=== PATIENT | male | born 1970 ===

== ENCOUNTER 2019-09-15 09:37 | Outpatient (CLI) | payer OTHER ==
--- NOTE | 2019-09-15 14:41 | XRay Report ---
RIGHT SHOULDER 3 VIEWS INDICATION: RT SHOULDER/ARM PAIN. COMPARISON: No relevant prior imaging study available. FINDINGS: No acute fracture or dislocation. There is mild acromioclavicular degenerative change. No soft tissue swelling or calcifications. IMPRESSION: 1. No acute findings. CERVICAL SPINE 3 VIEWS THORACIC SPINE 3 VIEWS INDICATION: Cervical and thoracic back pain right of midline.. COMPARISON: No relevant prior imaging study available. FINDINGS: Cervical spine: Cervical vertebral body height is maintained. There is mild discogenic degenerative c hange at C5-6 and C6-7. Alignment is normal. There is no prevertebral soft tissue swelling. Thoracic spine: No acute fracture is seen. There is mild mid thoracic disc space narrowing. Alignment is normal. IMPRESSION: 1. No acute findings. Signer Name: Fernando Hernandez MD Signed: 09/15/2019 2:37 PM Workstation Name: [id number]
== END 2019-09-15 09:38 | disposition home or self-care (01) ==
LOC: SPVIMAG 09:37
PROVIDERS: ATTEND Internal Medicine
DX: M19.011 Primary osteoarthritis, right shoulder (principal); T14.90XA Injury, unspecified, initial encounter; X58.XXXA Exposure to other specified factors, initial encounter; Y93.89 Activity, other specified; Y92.89 Other specified places as the place of occurrence of the external cause; Y99.0 Civilian activity done for income or pay
CPT/HCPCS: 72040; 72072